=== PATIENT | male | born 1935 | race Caucasian/White ===

== ENCOUNTER 2022-06-16 16:32 | Emergency (ER) | payer MEDICARE, OTHER, SELFPAY ==
--- NOTE | ~2022-06-16 | XR_ITS ---
EXAMINATION: XR CHEST CLINICAL INFORMATION: Dizziness COMPARISON: None TECHNIQUE: 2 views of the chest were obtained. FINDINGS: Lungs are hypoinflated. There is a diffuse interstitial abnormality which is likely chronic with a reticulonodular peripheral pattern. High resolution chest CT could further evaluate if indicated. No effusion, consolidation, or edema. The cardiomediastinal silhouette is normal. XR/XR chest 2V IMPRESSION: No acute cardiopulmonary findings. Probable chronic interstitial lung disease.
--- NOTE | ~2022-06-16 | CT_ITS ---
CT HEAD WITHOUT CONTRAST CLINICAL INFORMATION: Dizziness. COMPARISON: None available. TECHNIQUE: Contiguous axial imaging was performed from the skull base to vertex without intravenous administration of contrast. This CT examination was performed using dose optimization techniques as appropriate, variously including the following: *Automated exposure control *Adjustment of mA and/or kV according to patient size (this includes techniques or standardized protocols for targeted exams where dose is matched to indication/reason for exam; i.e. extremities or head) *Use of iterative reconstruction technique FINDINGS: There is mild chronic microangiopathy and there is atherosclerotic calcification throughout the intracranial arterial vasculature. Artifact obscures the brainstem. The tortuous vertebrobasilar system approaches the expected location of the cisternal segments of the right facial and vestibulocochlear nerves which can be further assessed with an IAC protocol MRI if not contraindicated to exclude vascular loop compression. There is no intracranial hemorrhage, hydrocephalus, extra-axial surface collection, midline shift, or other herniation pattern. Del[place] to white matter differentiation is diffusely maintained without evidence of an evolved acute territorial infarct. The basilar cisterns are preserved. No significant soft tissue abnormality. No acute osseous abnormality. The paranasal sinuses and the mastoid air cells are well aerated. CT/CT head/brain wo IV con IMPRESSION: No acute intracranial abnormality. There is mild chronic microangiopathy and there is atherosclerotic calcification throughout the intracranial arterial vasculature. Artifact obscures the brainstem. The tortuous vertebrobasilar system approaches the expected location of the cisternal segments of the right facial and vestibulocochlear nerves which can be further assessed with an IAC protocol MRI if not contraindicated to exclude vascular loop compression.
[2022-06-16 16:45] VITALS: BP 143/73; BP 147/86; PULSE 80; RESP 18; TEMP 36.8; O2SAT 95; O2SAT 98; BMI 27.3
[2022-06-16 16:49] VITALS: BP 129/76; BP 143/73; PULSE 78; PULSE 80; RESP 18
[2022-06-16 16:51] VITALS: BP 146/73; PULSE 80
[2022-06-16 16:52] VITALS: BP 129/76; PULSE 75
--- NOTE | 2022-06-16 16:52 | ED_ITS ---
HPI - General Adult General Chief complaint: Dizziness Stated complaint: Dizzy x 1hr, poss allergic reaction per EMS Time Seen by Provider: 06/16/22 16:52 Source: patient and EMS Mode of arrival: EMS Limitations: no limitations History of Present Illness HPI narrative: Patient is a 86 year old assigned male at with no reported medical history presenting to the emergency department today with dizziness. Patient states that he laid down for a nap and when he sat up from it, he was dizzy. Patient states that the dizziness is significantly worse when he moves his head and it gets better when he stays still. Patient denies any lightheadedness, abdominal pain, nausea, vomiting, fever, chills, blurry vision, double vision, loss of vision, chest pain, difficulty breathing, shortness of breath, back pain, night sweats, pain with urination, increased urinary frequency, increased urinary urgency, blood in his urine or stool, syncope or a near syncopal episode, recent trauma or falls, bowel incontinence, bladder incontinence, bowel retention, bladder retention, or any other complaints at this time. Onset (ago): hour(s) Severity: mild Severity scale (1-10): 2 Relieving factors: none Exacerbating factors: none Associated symptoms: denies other symptoms Treatments prior to arrival: none Related Data Allergies Allergy/AdvReac Type Severity Reaction Status Date / Time scallops Allergy Vomiting Verified 06/16/22 16:44 Sulfa (Sulfonamide Allergy Dizziness Verified 06/16/22 16:44 Antibiotics) Review of Systems Constitutional: Constitutional: Reports no additional constitutional complaints, Denies chills, Denies fever(s) and Denies night sweats Eyes: Eyes: Reports no additional eye complaints, Denies blurry vision, Denies change in vision, Denies diplopia, Denies eye discharge, Denies loss of vision and Denies eye pain ENT: Reports dizziness Cardiovascular: Cardiovascular: Reports no additional cardiovascular complaints, Denies chest pain, Denies lightheadedness, Denies Loss of Consciousness and Denies dyspnea Respiratory: Respiratory: Reports no additional respiratory complaints and Denies dyspnea Gastrointestinal: Gastrointestinal: Reports no additional gastrointestinal complaints, Denies abdominal pain, Denies melena, Denies hematochezia, Denies change in bowel habits and Denies change in stool character Genitourinary: Genitourinary: Reports no additional male genitourinary complaints, Denies hematuria, Denies oliguria, Denies difficulty urinating, Denies dysuria, Denies urinary frequency, Denies urinary hesitancy, Denies urinary incontinence and Denies urinary urgency Musculoskeletal: Musculoskeletal: Reports no additional musculoskeletal complaints, Denies numbness and Denies tingling Neurologic: Reports dizziness, Denies loss of vision, Denies numbness and Denies tingling Psychiatric: Psychiatric: Reports no additional psychiatric complaints Endocrine: Endocrine: Reports no additional endocrine complaints Hematologic/Lymphatic: Hematologic/Lymphatic: Reports no additional hematologic/lymphatic complaints Allergic/Immunologic: Allergic/Immunologic: Reports no additional allergic/immunologic complaints PENDING SALE TO [facility] Past Medical History Attestation statement: The following information was validated with the patient. Source: old records reviewed and nursing notes reviewed Social History Social History Alcohol intake: never Smoked in Last 30 Days: No Use of substances other than those prescribed or required for medical reasons: No Advance Directives: No Advance Directives Information Provided: No Physical Exam ED Vital Signs: Vital Signs - 24 hr 06/16/22 16:45 06/16/22 16:49 06/16/22 16:49 Temperature 98.3 F Pulse Rate 80 78 80 Respiratory Rate 18 18 Blood Pressure 143/73 H 129/76 143/73 H Pulse Oximetry 95 Oxygen Delivery Method Room Air 06/16/22 16:51 06/16/22 16:52 06/16/22 17:32 Temperature 98.8 F Pulse Rate 80 75 79 Respiratory Rate 16 Blood Pressure 146/73 H 129/76 142/69 H Pulse Oximetry 95 Oxygen Delivery Method Room Air 06/16/22 19:32 Temperature 97.9 F Pulse Rate 73 Respiratory Rate 20 Blood Pressure 154/69 H Pulse Oximetry 96 Oxygen Delivery Method Room Air BMI result Body Mass Index 27.3 Const General: cooperative, no acute distress, alert and awake Nutritional Appearance: well nourished Orientation/consciousness: patient oriented x3 Limitations: no limitations HENMT Head: Yes normal to inspection and Yes atraumatic Ears: hearing grossly normal bilaterally and external ears normal General nose exam: Normal external nose present, no nasal discharge noted and no epistaxis Face and sinus: Yes normal facial exam, No abrasion and No laceration Mouth: Normal oral and palatal mucosa present, no drooling and no muffled voice Eyes General: appearance normal, both eyes and all related structures Periorbital: periorbital findings normal Eyelids: Yes eyelids normal Conjunctivae: conjunctivae normal Pupils: Equal, round and reactive pupils present EOM: EOMs intact bilaterally Neck Neck: Yes normal visual inspection, Yes full ROM and Yes no lymphadenopathy Chest Chest palpation & inspection: normal inspection of the chest Resp Effort & Inspection: normal respiratory effort and able to speak in complete sentences Auscultation: clear to auscultation bilaterally Cardio Rate: regular rate Rhythm: regular rhythm GI Inspection: Yes normal to inspection Palpation (GI): Soft to palpation, not firm, nontender, no guarding and not rigid Neuro General: patient oriented x3 and moves all extremities Cranial nerves: Yes Equal, round and reactive pupils present Cognition (Neuro): normal cognition Motor exam (neuro): 5/5 motor strength present throughout Sensory Exam: Normal double simultaneous stimulation for sensation Coordination: [id number] test normal Extrem General: Yes normal to inspection, Yes full ROM and Yes capillary refill normal Psych Appearance: grossly normal Mental Status: mental status grossly normal Affect: normal affect Attitude: cooperative Thought process: Normal thought process present Thought content: Normal thought content present Insight: Good insight present (Psych) NIH Stroke Scale Internal: Initial- Upon Arrival Time: 16:52 Level of Consciousness: Alert Level of Consciousness Questions: Answers both questions correctly Level of Consciousness Commands: Performs both tasks correctly Best Gaze: Normal Visual: No visual loss Facial Palsy: Normal Motor Arm (Right): No drift Motor Arm (Left): No drift Motor Leg (Right): No drift Motor Leg (Left): No drift Limb Ataxia: Absent Sensory: Normal Best Language: No aphasia Dysarthia: Normal Extinction and Inattention: No abnormality Score: 0 Medications Administered Discontinued Medications Generic Name Dose Route Start Last Admin Trade Name Freq PRN Reason Stop Dose Admin Sodium Chloride 1,000 mls @ 999 mls/hr 06/16/22 17:00 06/16/22 17:41 Ns IV 06/16/22 18:00 999 mls/hr .Q1H1M RONALD Administration Meclizine HCl 25 mg 06/16/22 16:57 06/16/22 17:41 Meclizine Hcl 25 Mg Tablet PO 06/16/22 16:58 25 mg ONCE ONE Administration Medical Decision Making Medical Decision Making MDM Narrative: Patient is an 86 year old assigned male at with no reported medical history presenting to the emergency department today with dizziness. Patient's physical exam was unremarkable. Patient's blood work showed a slightly elevated white blood cell count which is consistent with a stress reaction. Patient's BUN was elevated at 26. Patient's head CT showed no acute process. Patient's chest x-ray was unremarkable. Patient's clinical presentation is most consistent with dehydration vs. BPPV. I explained my physical exam findings as well as all test results to the patient. I answered all questions asked by the patient. Patient received IV fluids and PO Meclazine which he stated resolved his dizziness. I stressed the importance of the patient taking his medication as prescribed. I stressed the importance of the patient following up with his primary care provider and a neurologist. I stressed the importance of the patient returning to the emergency department immediately if his symptoms were to worsen or if he were to develop any dizziness, shortness of breath, difficulty breathing, chest pain, blurry vision, loss of vision, nausea, vomiting, abdominal pain, fever, chills, back pain, or any other complaints. Patient verbalized agreement and understanding with this treatment plan and discharge. Differential Diagnosis Differential Diagnoses: The differential diagnosis associated with the presentation includes Dizziness, BPPV, dehydration Lab Data MDM Lab Attestation statement: I reviewed the patient's lab results. 06/16/22 17:39 06/16/22 17:39 Labs: Lab Results 06/16/22 06/16/22 06/16/22 Range/Units 17:39 17:39 17:39 WBC 13.3 H (4.8-10.8) X10*3/uL RBC 4.33 L (4.60-5.80) X10*6/uL Hgb 13.6 L (14.0-18.0) g/dl Hct 39.8 L (42.0-52.0) % MCV 91.9 (80.0-98.0) fL MCH 31.4 (27.0-33.0) pg MCHC 34.2 (31.0-36.0) g/dl RDW 12.8 (11.0-16.0) % Plt Count 159 L (160-400) X10*3/uL MPV 9.1 L (9.4-12.4) fL Immature Gran % (Auto) 0.4 (0.0-0.4) % Neut % (Auto) 85.2 H (45-73) % Lymph % (Auto) 6.5 L (20-40) % [place] % (Auto) 7.2 (2-11) % Eos % (Auto) 0.5 (0-4) % Baso % (Auto) 0.2 (0-2) % Lymph # (Auto) 0.9 L (1.2-4.9) X10*3/uL [place] # (Auto) 1.0 (0.1-1.2) X10*3/uL Eos # (Auto) 0.1 (0.0-0.4) X10*3/uL Baso # (Auto) 0.0 (0.0-0.2) X10*3/uL Abs Immat Gran (auto) 0.05 H (0.00-0.03) X10*3/uL Absolute Neuts (auto) 11.3 H (2.0-8.3) x10*3/uL Absolute Nucleated RBC 0.000 (0.0-0.012) X10*3/uL Nucleated RBC % (auto) 0.0 (0.0-0.2) /100WBC Sodium 140 (135-145) mmol/L Potassium 4.3 (3.3-5.1) mmol/L Chloride 102 (96-108) mmol/L Carbon Dioxide 30 H (22-29) mmol/L Anion Gap 12 (12-20) BUN 26 H (9-16) mg/dL Creatinine 1.08 (0.5-1.4) mg/dL Estim Creat Clear Calc 50.5 Estimated GFR > 60 Random Glucose 151 H (60-115) mg/dL Calcium 9.4 (8.4-10.2) mg/dL Total Bilirubin 0.4 (0.0-1.0) mg/dL AST 23 (5-37) U/L ALT 28 (0-40) U/L Alkaline Phosphatase 115 (39-117) U/L Troponin I High Sens 5.1 (<3.5-35.0) ng/L Total Protein 6.5 (6.5-8.0) g/dL Albumin 3.9 (3.5-5.0) g/dL Independent Interpretation I performed an independent interpretation of an: EKG Interpretation: Vent. Rate: 078 BPM ? ? Atrial Rate: 078 BPM P-R Int: 218 ms? QRS Dur: 114 ms QT Int: 402 ms ? ? ? P-R-T Axes: 022 014 018 degrees QTc Int: 458 ms ? Sinus rhythm with 1st degree A-V block Minimal voltage criteria for LVH, may be normal variant ( R in aVL ) Borderline ECG No previous ECGs available DD/ [id number] Radiology Impression Discussion of test interpretation with radiology: I have reviewed the r adiologist's reading. Radiologist Impression: My interpretation is in agreement with the radiologist's impression of these imaging studies. CT HEAD WITHOUT CONTRAST CLINICAL INFORMATION: Dizziness.? COMPARISON: None available. TECHNIQUE: Contiguous axial imaging was performed from the skull base to vertex without intravenous administration of contrast. This CT examination was performed using dose optimization techniques as appropriate, variously including the following: *Automated exposure control *Adjustment of mA and/or kV according to patient size (this includes techniques or standardized protocols for targeted exams where dose is matched to indication/reason for exam; i.e. extremities or head) *Use of iterative reconstruction technique FINDINGS: There is mild chronic microangiopathy and there is atherosclerotic calcification throughout the intracranial arterial vasculature. Artifact obscures the brainstem. The tortuous vertebrobasilar system approaches the expected location of the cisternal segments of the right facial and vestibulocochlear nerves which can be further assessed with an IAC protocol MRI if not contraindicated to exclude vascular loop compression. There is no intracranial hemorrhage, hydrocephalus, extra-axial surface collection, midline shift, or other herniation pattern. Deluca to white matter differentiation is diffusely maintained without evidence of an evolved acute territorial infarct. The basilar cisterns are preserved. No significant soft tissue abnormality. No acute osseous abnormality. The paranasal sinuses and the mastoid air cells are well aerated. CT/CT head/brain wo IV con IMPRESSION: No acute intracranial abnormality. There is mild chronic microangiopathy and there is atherosclerotic calcification throughout the intracranial arterial vasculature. Artifact obscures the brainstem. The tortuous vertebrobasilar system approaches the expected location of the cisternal segments of the right facial and vestibulocochlear nerves which can be further assessed with an IAC protocol MRI if not contraindicated to exclude vascular loop compression. Dictated By: Rich Caro MD Signed By: Electronically signed by Rich Caro MD 06/16/22 1824 EXAMINATION: XR CHEST CLINICAL INFORMATION: Dizziness COMPARISON: None TECHNIQUE: 2 views of the chest were obtained. FINDINGS: Lungs are hypoinflated. There is a diffuse interstitial abnormality which is likely chronic with a reticulonodular peripheral pattern. High resolution chest CT could further evaluate if indicated. No effusion, consolidation, or edema. The cardiomediastinal silhouette is normal. XR/XR chest 2V IMPRESSION: No acute cardiopulmonary findings. Probable chronic interstitial lung disease. Dictated By: Billy Vaz MD Signed By: Electronically signed by Billy Vaz MD 06/16/22 1262 Discharge Plan Discharge Clinical Impression: Dizziness Patient Disposition: Home, Self-Care Instructions: Dizziness (ED) Additional Instructions: Follow up with your primary care provider. Return to the emergency department immediately if your symptoms worsen or if you develop any dizziness, shortness of breath, difficulty breathing, chest pain, blurry vision, loss of vision, nausea, vomiting, abdominal pain, fever, chills, back pain, or any other complaints. Referrals: [facility] [Provider Group] (Call to establish and follow up with a neurologist. ) Fred Hernandez MD [Primary Care Provider] - Interventions: ED Discharge Assessment Last Done: 06/16/22 20:06 Discharge Date/Time: 06/16/22 20:07 Print Language: [place]an
--- NOTE | 2022-06-16 16:59 | ECG_ITS ---
Test Reason : DIZZINESS Blood Pressure : / mmHG Vent. Rate : 078 BPM Atrial Rate : 078 BPM P-R Int : 218 ms QRS Dur : 114 ms QT Int : 402 ms P-R-T Axes : 022 014 018 degrees QTc Int : 458 ms Sinus rhythm with 1st degree A-V block Minimal voltage criteria for LVH, may be normal variant ( R in aVL ) Borderline ECG No previous ECGs available Referred By: Yaquelin Spicer Electronically Signed By:CRYSTAL BROOKS MD
[2022-06-16 17:32] VITALS: BP 142/69; PULSE 79; RESP 16; TEMP 37.1; O2SAT 95
[2022-06-16] MEDS: 0.9 % Sodium Chloride 1,000 ML 999 ML IV (17:41)
[2022-06-16] MEDS: Meclizine HCl 25 MG TABLET PO (17:41)
[2022-06-16 17:45] LABS: MANUAL DIFF FLAG NO
[2022-06-16 17:48] LABS: Basophils Percent Auto 0.2 % (0-2); Eosinophils Absolute Auto 0.1 X10*3/uL (0.0-0.4); Eosinophils Percent Auto 0.5 % (0-4); Hematocrit 39.8 % (42.0-52.0); Hemoglobin 13.6 g/dl (14.0-18.0); Imm Gran Abs Auto 0.05 X10*3/uL (0.00-0.03); Imm Gran Pct Auto 0.4 % (0.0-0.4); Lymphocytes Absolute Auto 0.9 X10*3/uL (1.2-4.9); Lymphocytes Percent Auto 6.5 % (20-40); Mean Corpuscular HGB Conc 34.2 g/dl (31.0-36.0); Mean Corpuscular Hemoglobin 31.4 pg (27.0-33.0); Mean Corpuscular Volume 91.9 fL (80.0-98.0); Mean Platelet Volume 9.1 fL (9.4-12.4); Monocytes Percent Auto 7.2 % (2-11); Neutrophils Absolute Auto 11.3 x10*3/uL (2.0-8.3); Neutrophils Percent Auto 85.2 % (45-73); Platelet Count 159 X10*3/uL (160-400); Red Blood Count 4.33 X10*6/uL (4.60-5.80); Red Cell Distribution Width 12.8 % (11.0-16.0); White Blood Count 13.3 X10*3/uL (4.8-10.8)
--- NOTE | 2022-06-16 17:48 | MHC.EDTECH ---
PATIENT LAB DRAW DONE AND SENT TO LAB ,EKG AND VITALS SIGN TAKEN ,PATIENT IS RESTING ,CALL WEEKS WITHIN REACH .
[2022-06-16 18:09] LABS: Alanine Aminotransferase 28 U/L (0-40); Albumin Level 3.9 g/dL (3.5-5.0); Alkaline Phosphatase 115 U/L (39-117); Anion Gap 12 (12-20); Aspartate Amino Transferase 23 U/L (5-37); Bilirubin Total 0.4 mg/dL (0.0-1.0); Blood Urea Nitrogen 26 mg/dL (9-16); Calcium 9.4 mg/dL (8.4-10.2); Carbon Dioxide 30 mmol/L (22-29); Chloride 102 mmol/L (96-108); Creatinine Clr Calc Pharmacy 50.5; Estimated Glomerular Filt Rate > 60; Glucose Random 151 mg/dL (60-115); Potassium 4.3 mmol/L (3.3-5.1); Sodium 140 mmol/L (135-145); Total Protein 6.5 g/dL (6.5-8.0)
[2022-06-16 18:17] LABS: Troponin-I High Sensitivity 5.1 ng/L (<3.5-35.0)
[2022-06-16 19:32] VITALS: BP 154/69; PULSE 73; RESP 20; TEMP 36.6; O2SAT 96
--- NOTE | 2022-06-16 19:54 | MHC.EDTECH ---
patient vitals sign taken ,patient and son in room ,patient waiting for discharge paper work .
== END 2022-06-16 20:07 | disposition home or self-care (01) ==
PROVIDERS: Physician Assistant Medical; Emergency Provider Emergency Medicine; PCP Internal Medicine
DX: R42 Dizziness and giddiness (principal); I73.9 Peripheral vascular disease, unspecified
CPT/HCPCS: 36415; 70450; 71046; 80053; 84484; 85025; 93005; 99284; 99285